=== PATIENT | male | born 1985 | race Caucasian/White ===

== ENCOUNTER 2023-07-21 13:10 | Outpatient (CLI) | payer OTHER, SELFPAY ==
--- NOTE | ~2023-07-21 | MR_ITS ---
EXAMINATION: MR elbow LT w con DATE: 07/21/2023 15:18 INDICATION: Ulnar collateral ligament sprain at the left elbow TECHNIQUE: Magnetic resonance imaging (MRI) of the left elbow elbow was performed with intra-articula r contrast but without intravenous contrast. Details of the joint injection of been dictated separate ly. Sequences included axial, sagittal and coronal T1-weighted FS FSE, axial and sagittal T2-weighted FS FSE, axial T1-weighted FS FSE and coronal PD-weighted FSE. COMPARISON: None FINDINGS: Osseous/other: Normal alignment. Normal marrow signal with no marrow edema, fracture, osteochondral lesion or abnor mal marrow replacing process. Mild partial-thickness cartilage loss with smooth chondral surface wilfredo g one side of the radial head as well as along the proximal radioulnar articulation of the ulna. Tendons: Triceps, biceps brachii and brachialis tendons are normal. The common extensor tendon wad is normal aside from small amount of and contrast imbibition into the tendon and associated musculature resulti ng from extravasation at the site of the contrast injection. The common flexor tendon wad is normal. Ligaments: There is thickening and mild increased signal without associated edema at the proximal aspect of the ulnar collateral ligament consistent with likely scarring related to prior sprain. There is partial t ear of the ulnar side of the lateral ulnar collateral ligament. The remainder the lateral collateral ligament complex remains intact. Cubital tunnel: Cubital tunnel is unremarkable with normal signal and caliber of the ulnar nerve. IMPRESSION: 1. Partial tear of the lateral ulnar collateral ligament. 2. Scarring without associated edema to suggest acute injury at the proximal lateral collateral ligam ent likely sequela of chronic sprain. 3. Mild osteoarthritis. Reviewed, dictated and finalized at location A. IMPRESSION: 1. Partial tear of the lateral ulnar collateral ligament. 2. Scarring without associated edema to suggest acute injury at the proximal la teral collateral ligament likely sequela of chronic sprain. 3. Mild osteoarthritis.
--- NOTE | ~2023-07-21 | XR_ITS ---
EXAMINATION: XR fl inj elbow LT for MR/CT DATE: 07/21/2023 14:28 INDICATION: Sprain of ulnar collateral ligament of left elbow. TECHNIQUE: A time-out was performed to verify the patient's name, date of , and procedure to b e performed. The procedure including the risks, benefits, and alternatives was discussed with the pat ient. Risks discussed included bleeding and infection. The patient understood the risks and agreed to proceed. The skin overlying the left elbow joint was prepped and draped in usual sterile fashion. A nesthetic was administered with 1% lidocaine subcutaneously. A 23 G needle was advanced under fluoro scopic guidance into the joint. Subsequently, injectate consisting of 6 mL of 1:200 Multihance, 1:4 1% lidocaine, and 1:4 Omnipaque 240 was instilled. The needle was removed and the entry site was russell aned and dressed. There were no immediate complications. Fluoroscopy exposure time was 0.1 minutes. The total number of images was 2. FINDINGS: Real-time fluoroscopy demonstrates the needle and contrast in the joint. IMPRESSION: 1. Successful left elbow joint injection of contrast for subsequent MR arthrography. Reviewed, dictated and finalized at location A. IMPRESSION: 1. Successful left elbow joint injection of contrast for subsequent MR arthrogr aphy.
== END 2023-07-21 13:11 | disposition home or self-care (01) ==
PROVIDERS: PCP Family Medicine
DX: S53.442A Ulnar collateral ligament sprain of left elbow, initial encounter (principal); M19.022 Primary osteoarthritis, left elbow; X58.XXXA Exposure to other specified factors, initial encounter
CPT/HCPCS: 20605; 73222; 77002; A9577; Q9966

== ENCOUNTER → 2023-09-24 09:13 | Outpatient (CLI) | payer OTHER, SELFPAY ==
--- NOTE | ~2023-09-24 | XR_ITS ---
EXAMINATION: XR lumbar spine 2-3V DATE: 09/24/2023 09:39 INDICATION: Low back pain, unspecified. TECHNIQUE: 3 views of lumbar spine standing were obtained. COMPARISON: None. FINDINGS: There is 6 degrees dextrocurvature of lumbar spine. Vertebral body heights and intervertebr al disc heights are normal. The facet joints are unremarkable. IMPRESSION: 1. No etiology for the patient's symptoms. Reviewed, dictated and finalized at location E.
== END ==
PROVIDERS: PCP Physician Assistant; Visit Provider Physician Assistant
DX: M54.50 Low back pain, unspecified (principal)
CPT/HCPCS: 72100

== ENCOUNTER 2024-09-29 15:46 | Outpatient (CLI) | payer OTHER, SELFPAY ==
--- NOTE | ~2024-09-29 | XR_ITS ---
XR thoracic spine 3V DATE: 09/29/2024 16:00 INDICATION: Thoracic back pain TECHNIQUE: Standing AP, lateral and swimmer views COMPARISON: None FINDINGS: There is minimal thoracic levoscoliosis. No fracture or dislocation or bone destruction. The thoracic pedicles are intact. No paraspinal soft tissue thickening. Slight degenerative spurring. IMPRESSION: Minimal levoscoliosis and slight degenerative spurring; otherwise negative Reviewed, dictated and finalized at location A. IMPRESSION: Minimal levoscoliosis and slight degenerative spurring; otherwise n egative
== END 2024-09-29 15:47 | disposition home or self-care (01) ==
PROVIDERS: PCP Family Medicine; Visit Provider Physician Assistant
DX: M54.9 Dorsalgia, unspecified (principal)
CPT/HCPCS: 72072

== ENCOUNTER 2025-01-29 18:45 | Emergency (ER) | payer OTHER, SELFPAY ==
[2025-01-29 18:50] VITALS: BP 119/71; PULSE 90; RESP 20; TEMP 37.2; O2SAT 100
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
== END 2025-01-29 19:27 | disposition home or self-care (01) ==
PROVIDERS: Emergency Provider Nurse Practitioner Family; PCP Family Medicine
DX: R11.0 Nausea (principal); Z87.891 Personal history of nicotine dependence
CPT/HCPCS: 99213; G0463

== ENCOUNTER 2025-03-07 13:56 | Outpatient (CLI) | payer OTHER, SELFPAY ==
--- NOTE | ~2025-03-07 | MR_ITS ---
EXAMINATION: MR lumbar spine wo con DATE: 03/07/2025 14:33 INDICATION: Low back pain TECHNIQUE: Magnetic resonance imaging (MRI) of the lumbar spine was performed without intravenous con trast. Sequences included sagittal T2-weighted FSE, sagittal T2-weighted FS FSE, sagittal T1-weighted FSE, and axial T2-weighted FSE. COMPARISON: None FINDINGS: Alignment is normal. Vertebral body heights are normal. Normal marrow signal. Disc desiccation with mild disc height loss at L5-S1. Remaining disc heights are normal. The conus medullaris terminates at L1. There is normal signal in the caudal spinal cord. Paravertebral soft tissues are unremarkable. T he following disc levels are specifically discussed: T12-L1: The disc does not extend beyond the endplate margin. There is mild bilateral facet joint oste oarthritis. There is no neural foraminal stenosis. There is no central canal stenosis. L1-L2: Disc is minimally bulging. There is mild bilateral facet joint osteoarthritis. There is no lisbeth ral foraminal stenosis. There is no central canal stenosis. L2-L3: Disc is minimally bulging. There is mild bilateral facet joint osteoarthritis. There is mild b ilateral neural foraminal stenosis. There is no central canal stenosis. L3-L4: Disc is minimally bulging. There is moderate bilateral facet joint osteoarthritis. There is mi ld bilateral neural foraminal stenosis. There is no central canal stenosis. L4-L5: Disc is mildly bulging. There is moderate bilateral facet joint osteoarthritis. There is mild bilateral neural foraminal stenosis. There is mild central canal stenosis. L5-S1: Disc is mildly bulging with superimposed central annular fissure. There is moderate bilateral facet joint osteoarthritis. There is mild bilateral neural foraminal stenosis. There is no central ca nal stenosis. IMPRESSION: 1. Minimal mid to upper and mild lower lumbar spondylosis. Reviewed, dictated and finalized at location B.
--- OUTSIDE RECORDS SUMMARY | 2025-03-07 15:37 | XMS_ITS | Clinical Summary ---
Author Organization [facility] Address [address] [place] [address] Phone Care Team Providers Care Haz Tech Name Role Phone Unavailable Primary Care Provider Unavailabl e Allergies No known active allergies Medications AdderalL 10 mg tablet Take 10 mg by mouth Continuous as needed. 6 Active tiZANidine (ZANAFLEX) 2 mg Tablet Take 2 mg by mouth 3 times daily as needed for Discomfort or Spasm. for muscle spasms 3 Active Active Problems No known active problems Social History Tobacco Use Types Packs/Day Years Used Date Smoking Tobacco: Former Cigarettes Q uit: 09/03/2020 Smokeless Tobacco: Never Tobacco Cessation:Counseling Given: Not Answered Alcohol Use Standard Drinks/Week Comments Yes 0 (1 standard drink = 0.6 oz pur e alcohol) 2-7 beers weekly Sex and Gender Information Value Date Recorded Sex Assigned at Not on file Legal Sex Male 9:18 AM CDT Gender Identity Not on file Sexual Orientation Not on file Last Filed Vital Signs Vital Sign Reading Time Taken Comments Blood Pressure 100/60 11/18/2023 12:02 PM [employer] Pulse 55 11/18/2023 12:02 PM [employer] Temperature 36.3 C (97.4 F) 11/18/2023 12:02 PM [employer] Respiratory Rate - - Oxygen Saturation 97% 11/18/2023 12:02 PM [employer] Inhaled Oxygen Concentration - - Weight 98.4 kg (217 lb) 11/18/2023 12:02 PM [employer] Height 188 cm (6' 2 ) 11/18/2023 12:02 PM [employer] INS[employer] Body Mass Index 27.86 11/18/2023 12:02 PM [employer] Plan of Treatment Health Maintenance Due Date Last Done Comments DTAP/TDAP/TD VACCINES (1 - Tdap) 2002 HEPATITIS B VACCINES (1 of 3 - 19+ 3-dose series) 2002 INFLUENZA VACCINE (#1) 2024 HPV VACCINES Aged Out No longer eligi ble based on patient's age to complete this [place] [place] [address] [facility] OPEN ACCESS
== END 2025-03-07 13:57 | disposition home or self-care (01) ==
PROVIDERS: PCP Family Medicine; Visit Provider Physician Assistant
DX: M47.816 Spondylosis without myelopathy or radiculopathy, lumbar region (principal); M41.85 Other forms of scoliosis, thoracolumbar region
CPT/HCPCS: 72148

== ENCOUNTER 2025-10-12 13:03 | Outpatient (CLI) | payer OTHER, SELFPAY ==
--- NOTE | ~2025-10-12 | US_ITS ---
EXAM/PROCEDURE: US scrotum doppler HISTORY: N50.9 - Disorder of male genital organs, unspecified COMPARISON: None available. TECHNIQUE: Standard technique for scrotal ultrasound performed FINDINGS: Right testicle: 4.4 x 2.1 x 2.4 cm Left testicle: 4.4 x 2.6 x 3.0 cm Both testicles appear normal in echotexture and vascular flow. In the left epididymal head a 6 x 5 x 4 mm epididymal head cyst or spermatocele noted. The epididymal regions otherwise appear normal. No hydroceles. No varicoceles. IMPRESSION: Both testicles appear normal. Small benign-appearing 6 mm left epididymal head cyst or spermatocele. Reviewed, dictated and finalized at location A. K LAYER
--- OUTSIDE RECORDS SUMMARY | 2025-10-12 17:25 | XMS_ITS | Clinical Summary ---
Author Organization [facility] Address [address] [place] [address] Phone Care Team Providers Care Mechanical Supervisor Name Role Phone Unavailable Primary Care Provider [...] Comments Blood Pressure 100/60 11/18/2023 12:02 PM [employer] Pulse 55 11/18/2023 12:02 PM [employer] Temperature 36.3 C (97.4 F) 11/18/2023 12:02 PM [employer] Respiratory Rate - - Oxygen Saturation 97% 11/18/2023 12:02 PM [employer] Inhaled Oxygen Concentration - - Weight 98.4 kg (217 lb) 11/18/2023 12:02 PM [employer] Height 188 cm (6' 2) 11/18/2023 12:02 PM [employer] Body Mass Index 27.86 11/18/2023 12:02 PM [employer] Plan of Treatment Health Maintenance Due Date Last Done Comments DTAP/TDAP/TD VACCINES (1 - Tdap) 2002 HEPATITIS B VACCINES (1 of 3 - 19+ 3-dose series) 01/2002 HPV VACCINES (1 - 3-dose SCDM series) 2010 INFLUENZA VACCINE (#1) 20[address] [place] [address] [facility] [phone]
== END 2025-10-12 13:04 | disposition home or self-care (01) ==
PROVIDERS: PCP Family Medicine; Visit Provider Student in an Organized Health Care Education/Training Program
DX: N50.3 Cyst of epididymis (principal); N43.40 Spermatocele of epididymis, unspecified
CPT/HCPCS: 76870; 93976